=== PATIENT | female | born 1995 | race Caucasian/White ===

== ENCOUNTER → 2024-11-10 09:11 | Outpatient (CLI) | payer OTHER, SELFPAY ==
[2024-11-10 10:16] LABS: Hemoglobin A1C% w Est Avg Glu 4.5 % (4.0-6.0)
[2024-11-10 10:26] LABS: Alanine Aminotransferase 13 IU/L (<35); Albumin 5.3 g/dL (3.5-5.0); Albumin Globulin Ratio 1.7 (1.0-2.8); Alkaline Phosphatase 42 U/L (38-126); Aspartate Aminotransferase 24 IU/L (14-36); BUN Creatinine Ratio 18.8 (6-22); Bilirubin Total 0.8 mg/dL (0.2-1.3); Blood Urea Nitrogen 15 mg/dL (7-17); Carbon Dioxide 26 mmol/L (22-32); Chloride 103 mmol/L (98-107); Cholesterol 185 mg/dL (140-199); Estimated Glomerular Filt Rate > 60 mL/min (>60); Globulin 3.1 g/dL (1.7-4.1); Glucose 79 mg/dL (70-100); HDL Cholesterol 62 mg/dL (40-60); HEMOLYSIS < 15 (0-50); LDL Cholesterol Calculated 111 mg/dL (<100); Potassium 4.8 mmol/L (3.4-5.1); Sodium 139 mmol/L (137-145); Total Protein 8.4 g/dL (6.3-8.2); Triglycerides 61 mg/dL (35-150)
[2024-11-10 10:29] LABS: Add Manual Diff / Slide Review NO; Basophils Absolute Auto 0 /uL (0-100); Basophils Percent Auto 0.8 % (0-2); Eosinophils Absolute Auto 100 /uL (0-450); Eosinophils Percent Auto 2.6 % (2-4); Hematocrit 41.1 % (36-46); Hemoglobin 14.2 g/dL (12.0-16.0); Lymphocytes Absolute Auto 1300 /uL (1100-4500); Lymphocytes Percent Auto 32.2 % (25-40); Mean Corpuscular HGB Conc 34.4 % (30-36); Mean Corpuscular Hemoglobin 29.5 PG (26-34); Mean Corpuscular Volume 85.8 fL (80-100); Monocytes Absolute Auto 300 /uL (0-900); Monocytes Percent Auto 7.3 % (3-14); Neutrophils Absolute Auto 2300 /uL (1500-7000); Neutrophils Percent Auto 57.1 % (50-75); Platelet Count 249 X10^3/uL (150-400); Red Blood Cell Count 4.79 X10^6/uL (4.0-5.2); Red Cell Distribution Width 12.8 % (11.6-14.8); White Blood Cell Count 4.1 X10^3/uL (4.5-11.0)
[2024-11-10 10:43] LABS: Follicle Stimulating Hormone 4.84 mIU/mL; Luteinizing Hormone 8.85 mIU/mL; Prolactin 11.9 ng/mL (3.0-18.6)
[2024-11-10 10:58] LABS: TSH w/ Reflex to FT4 2.17 uIU/mL (0.47-4.68)
== END ==
LOC: LAB 09:12
PROVIDERS: PCP Family Medicine; Referring Provider Family Medicine; Visit Provider Family Medicine
DX: Z31.89 Encounter for other procreative management (principal); E28.2 Polycystic ovarian syndrome
CPT/HCPCS: 36415; 80053; 80061; 83001; 83002; 83036; 84146; 84402; 84403; 84443; 85025

== ENCOUNTER → 2024-11-28 15:49 | Outpatient (CLI) | payer OTHER, SELFPAY ==
--- NOTE | 2024-11-28 15:50 | DI.US.S_ITS ---
PROCEDURE: US PELVIC COMPLETE INDICATIONS: PCOS TECHNIQUE: Real-time scanning was performed of the pelvic organs, with image documentation. Additional endovaginal scanning was necessary due to incomplete visualization of the adnexal and endometrial structures by transabdominal scanning. COMPARISON: None. FINDINGS: Uterus: Uterus is anteverted and normal in size at 7.5 x 5.0 x 3.8 cm. The myometrium is homogeneous. The endometrium measures 6 mm combined thickness. Ovaries: The right ovary measures 4.7 x 2.9 x 2.5 cm, with a calculated ovarian volume of 17.8 cc. The left ovary measures 4.7 x 3.1 x 2.3 cm, with a calculated ovarian volume of 17.5 cc. The ovaries have a normal sonographic appearance. Greater than 12 follicles can be seen in each ovary. No adnexal masses are seen. Other: No pathologic free abdominal or pelvic fluid. IMPRESSION: Greater than 12 sub-5 mm follicular cysts bilaterally which can be associated with polycystic ovarian morphology. We strive to produce accurate, complete, and clear reports of imaging services. To assist us in improving patient care, this report was composed using standard report templates and voice recognition software. Therefore, it may contain abnormal punctuation, insertions and/or omissions. Occasional wrong-word or sound-alike substitutions may occur. Though we review the report and make efforts to correct it, we do recommend that the report be read carefully in proper context to recognize any text inaccuracies. Dictated by: Jose Escamilla M.D. on 11/28/2024 at 20:46 Approved by: Jose Escamilla M.D. on 11/28/2024 at 20:47
== END ==
LOC: US 15:50
PROVIDERS: PCP Family Medicine; Referring Provider Family Medicine; Visit Provider Family Medicine
DX: E28.2 Polycystic ovarian syndrome (principal); Z31.89 Encounter for other procreative management
CPT/HCPCS: 76830; 76856

== ENCOUNTER → 2025-02-08 16:06 | Outpatient (CLI) | payer OTHER, SELFPAY ==
[2025-02-08 18:10] LABS: Add Manual Diff / Slide Review NO; Basophils Absolute Auto 0 /uL (0-100); Basophils Percent Auto 0.6 % (0-2); Eosinophils Absolute Auto 100 /uL (0-450); Eosinophils Percent Auto 2.2 % (2-4); Hematocrit 42.5 % (36-46); Hemoglobin 14.8 g/dL (12.0-16.0); Lymphocytes Absolute Auto 1800 /uL (1100-4500); Lymphocytes Percent Auto 26.1 % (25-40); Mean Corpuscular HGB Conc 34.7 % (30-36); Mean Corpuscular Hemoglobin 29.9 PG (26-34); Monocytes Absolute Auto 500 /uL (0-900); Monocytes Percent Auto 7.9 % (3-14); Neutrophils Absolute Auto 4200 /uL (1500-7000); Neutrophils Percent Auto 63.2 % (50-75); Platelet Count 252 X10^3/uL (150-400); Red Blood Cell Count 4.94 X10^6/uL (4.0-5.2); Red Cell Distribution Width 13.4 % (11.6-14.8); White Blood Cell Count 6.7 X10^3/uL (4.5-11.0)
== END ==
PROVIDERS: PCP Family Medicine; Referring Provider Family Medicine; Visit Provider Family Medicine
DX: D72.819 Decreased white blood cell count, unspecified (principal)
CPT/HCPCS: 36415; 85025